=== PATIENT | male | born 1980 ===

== ENCOUNTER 2017-04-22 16:54 | Emergency (ER) | payer OTHER ==
--- NOTE | 2017-04-22 18:01 | ED PDOC ---
Upper Extremity Pain/Injury Time Seen by Provider: 04/22/17 17:08 Chief Complaint (Nursing): Upper Extremity Problem/Injury Chief Complaint (Provider): Right shoulder pain associated with chest pain History Per: Patient History/Exam Limitations: no limitations Onset/Duration Of Symptoms: Days (x4 days) Current Symptoms Are (Timing): Better Additional Complaint(s): 36 y/o male presents to the emergency department with a complaint of intermittent left shoulder pain associated with mild chest pain x4 days. Reports pain is a 2/10 in the ER. States pain does not worsen with deep breaths. Denies fall, shortness of breath or cough. No meds taken for pain relief since onset of symptoms a few days ago. Past Medical History Reviewed: Historical Data, Nursing Documentation, Vital Signs Vital Signs: Last Vital Signs Temp 98.6 F 04/22/17 17:01 Pulse 82 04/22/17 17:01 Resp 16 04/22/17 17:01 BP 143/85 04/22/17 17:01 Pulse Ox 98 04/22/17 17:01 - Medical History PMH: No Chronic Diseases - Surgical History Surgical History: No Surg Hx - Family History Family History: States: No Known Family Hx - Living Arrangements Living Arrangements: With Family - Social History Current smoker - smoking cessation education provided: Yes (Light smoker <10 Cigarettes Daily) Alcohol: Occasional Drugs: Denies - Home Medications Home Medications: Ambulatory Orders Medication Instructions Recorded Docusate [Colace] 100 mg PO DAILY #5 cap 04/11/16 - Allergies Allergies/Adverse Reactions: Allergies Allergy/AdvReac Type Severity Reaction Status Date / Time No Known Allergies Allergy Verified 04/22/17 17:01 Review of Systems ROS Statement: Except As Marked, All Systems Reviewed And Found Negative Cardiovascular: Positive for: Chest Pain (Mild) Respiratory: Negative for: Cough, Shortness of Breath Gastrointestinal: Negative for: Nausea, Vomiting Musculoskeletal: Positive for: Shoulder Pain (Left) Neurological: Negative for: Weakness, Numbness, Incoordination, Change in Speech , Confusion, Seizures, Altered Mental Status, Headache, Dizziness Physical Exam - Reviewed Nursing Documentation Reviewed: Yes Vital Signs Reviewed: Yes - Physical Exam Appears: Positive for: Well, Non-toxic, No Acute Distress Head Exam: Positive for: ATRAUMATIC, NORMAL INSPECTION, NORMOCEPHALIC Skin: Positive for: Normal Color. Negative for: Rash Eye Exam: Positive for: Normal appearance, EOMI, PERRL Neck: Positive for: Normal, Painless ROM. Negative for: Pain On Movement Of Neck Cardiovascular/Chest: Positive for: Regular Rate, Rhythm. Negative for: Chest Non Tender, Murmur Respiratory: Positive for: Normal Breath Sounds. Negative for: Accessory Muscle Use, Respiratory Distress Extremity: Positive for: Normal ROM (Full ROM of the left shoulder. ), Tenderness (Diffuse tenderness of the left shoulder region. ), Other (strong left hand international representative). Negative for: Deformity, Swelling Neurologic/Psych: Positive for: Alert, Oriented - Laboratory Results Result Diagrams: 04/22/17 18:03 04/22/17 18:03 - ECG Interpretation Of ECG: NSR 64 bpm with sinus arrhythmia, no acute finding, reviewed by PA and ED attending. O2 Sat by Pulse Oximetry: 98 (RA) Pulse Ox Interpretation: Normal - Other Rad L shoulder x-ray X-Ray: Interpreted by Me, Viewed By Me X-Ray Interpretation: no fx, no dis CXR X-Ray: Viewed By Me, Read By Radiologist X-Ray Interpretation: see below Medical Decision Making Medical Decision Making: Time: 17:08 Initial Impression: Left shoulder pain associated with chest pain Initial Plan: --Electrocardiogram STAT --COMP Metabolic Panel --Troponin I Stat --EKG-ED (EDNURTX) Stat --CBC w/ differential --Chest Two Views (RAD) --Shoulder Left (RAD) --Pain meds declined upon arrival --Reevaluation Time: 18:29 Chest x-ray: FINDINGS: LUNGS: Subtle opacity in the right upper lobe of unclear significance, possibly artifactual related to summation artifact. Nodule cannot be excluded.Please note that chest x-ray has limited sensitivity for the detection of pulmonary masses. PLEURA: No significant pleural effusion identified. No definite pneumothorax. CARDIOVASCULAR: The cardiomediastinal silhouette appears within normal limits of size. OSSEOUS STRUCTURES: No acute osseous abnormality identified. VISUALIZED UPPER ABDOMEN: Unremarkable. OTHER FINDINGS: None. IMPRESSION: Subtle opacity in the right upper lobe of unclear significance, possibly artifactual related to summation artifact. Nodule cannot be excluded. CT of the chest may be considered if indicated. 19:30: CT chest was ordered based on above chest x-ray report. Patient states chest and shoulder pain have resolved. Time: 20:19 CT Chest w/o contrast FINDINGS: Lungs: No acute pulmonary opacity. No suspicious lung nodule. There are few subpleural right upper lobe triangular pulmonary nodules measuring less than 4 mm compatible with normal pulmonary lymph nodes. Pleural space: No significant pleural effusion. No pneumothorax. Heart: No cardiomegaly or pericardial effusion. Bones/joints: No acute osseous abnormality. Soft tissues: No soft tissue swelling. Vasculature: Significantly limited assessment of the vasculature without contrast. No aortic aneurysm. Lymph nodes: No adenopathy. Upper abdomen: No acute findings in the upper abdomen. IMPRESSION: No acute pulmonary opacity or suspicious lung nodule. 20:30: Patient is aware of all diagnostic testing results, all questions answered. Upon reevaluation patient states the pain has resolved. Patient was instructed to take Tylenol for pain as needed and was referred to clinic for follow-up. Patient aware he can return to ED any time if acutely worse Scribe Attestation: Documented by Sunni Hernandez, acting as a scribe for Latosha Márquez PA-C. Provider Scribe Attestation: All medical record entries made by the Scribe were at my direction and personally dictated by me. I have reviewed the chart and agree that the record accurately reflects my personal performance of the history, physical exam, medical decision making, and the department course for this patient. I have also personally directed, reviewed, and agree with the discharge instructions and disposition. Disposition - Clinical Impression Clinical Impression: Shoulder pain, Chest pain - Patient ED Disposition Is Patient to be Admitted: No Counseled Patient/Family Regarding: Studies Performed, Diagnosis, Need For Followup - Disposition Referrals: [facility] [Outside] Disposition: Routine/Home Disposition Time: 21:11 Condition: STABLE Additional Instructions: Tylenol as needed for pain. Follow up with clinic in 2-3 days. Instructions: Chest Pain (ED), Shoulder Pain (ED) Print Language: HONDURAN Results - Lab Results Lab Results: 04/22/17 04/22/17 18:03 18:03 WBC 11.4 H RBC 4.83 Hgb 14.6 Hct 43.3 MCV 89.7 MCH 30.2 MCHC 33.6 RDW 13.9 Plt Count 272 MPV 8.8 Neut % (Auto) 71.4 Lymph % (Auto) 18.5 L Bollinger % (Auto) 7.4 Eos % (Auto) 1.6 Baso % (Auto) 1.1 Neut # 8.2 H Lymph # 2.1 Bollinger # 0.8 Eos # 0.2 Baso # 0.1 Sodium 141 Potassium 4.6 Chloride 102 Carbon Dioxide 29 Anion Gap 15 BUN 18 Creatinine 0.8 Est GFR ( Amer) > 60 Est GFR (Non-Af Amer) > 60 Random Glucose 106 Calcium 9.7 Total Bilirubin 0.3 AST 46 ALT 30 Alkaline Phosphatase 82 Troponin I < 0.0120 Total Protein 8.0 Albumin 4.8 Globulin 3.2 Albumin/Globulin Ratio 1.5
[2017-04-22 18:14] LABS: BASO # 0.1 K/uL (0.0-0.2); BASO % 1.1 % (0.0-2.0); EOS # 0.2 K/uL (0.0-0.7); EOS % 1.6 % (0.0-4.0); HEMATOCRIT 43.3 % (35.0-51.0); LYMPH # 2.1 K/uL (1.0-4.3); LYMPH % 18.5 % (20.0-40.0); MEAN CELL VOLUME 89.7 fl (80.0-94.0); MEAN CORPUSCULAR HEMOGLOBIN 30.2 pg (27.0-31.0); MEAN CORPUSCULAR HGB CONC 33.6 g/dL (33.0-37.0); MEAN PLATELET VOLUME 8.8 fl (7.2-11.7); MONO # 0.8 K/uL (0.0-0.8); MONO % 7.4 % (0.0-10.0); NEUT # 8.2 K/uL (1.8-7.0); NEUT % 71.4 % (50.0-75.0); RED CELL DISTRIBUTION WIDTH 13.9 % (11.5-14.5); WHITE BLOOD COUNT 11.4 K/uL (4.8-10.8)
--- NOTE | 2017-04-22 18:31 | RAD ---
HISTORY: chest pain COMPARISON: None available. TECHNIQUE: Chest PA and lateral FINDINGS: LUNGS: Subtle opacity in the right upper lobe of unclear significance, possibly artifactual related to summation artifact. Nodule cannot be excluded.Please note that chest x-ray has limited sensitivity for the detection of pulmonary masses. PLEURA: No significant pleural effusion identified. No definite pneumothorax . CARDIOVASCULAR: The cardiomediastinal silhouette appears within normal limits of size. OSSEOUS STRUCTURES: No acute osseous abnormality identified. VISUALIZED UPPER ABDOMEN: Unremarkable. OTHER FINDINGS: None. IMPRESSION: Subtle opacity in the right upper lobe of unclear significance, possibly artifactual related to summation artifact. Nodule cannot be excluded. CT of the chest may be considered if indicated.
--- NOTE | 2017-04-22 18:32 | RAD ---
PROCEDURE: Radiographs of the Left Shoulder HISTORY: trauma COMPARISON: None available. FINDINGS: BONES: No acute displaced fracture. The distal clavicle and underlying ribs appear intact. JOINTS: No acute dislocation. SOFT TISSUES: Soft tissues appear unremarkable. No evidence of radiopaque foreign body. IMPRESSION: No acute displaced fracture or dislocation evident. If symptoms persist or if there is continued clinical concern, x-ray follow-up in 7-10 days should be considered.
[2017-04-22 18:43] LABS: ALB/GLOB RATIO 1.5 (1.0-2.1); ALKALINE PHOSPHATASE 82 U/L (38-126); ALT/SGPT 30 U/L (21-72); AST/SGOT 46 U/L (17-59); BILIRUBIN,TOTAL 0.3 mg/dl (0.2-1.3); BLOOD UREA NITROGEN 18 mg/dl (9-20); CALCIUM 9.7 mg/dL (8.4-10.2); CARBON DIOXIDE 29 mmol/L (22-30); CHLORIDE 102 mmol/L (98-107); GFR AFRICAN-AMERICAN > 60; GLUCOSE,RANDOM 106 mg/dL (75-110); POTASSIUM 4.6 MMOL/L (3.6-5.0); SODIUM 141 mmol/l (132-148)
[2017-04-22 20:04] VITALS: BP 132/82; PULSE 78; RESP 14; TEMP 98
[2017-04-22 20:44] VITALS: O2SAT 98
--- NOTE | 2017-04-23 10:43 | CT ---
PROCEDURE: CT Chest without contrast HISTORY: possible nodule RUL, a per CXR report COMPARISON: Comparison made with chest radiograph obtained earlier same day. TECHNIQUE: Contiguous axial images were obtained through the chest without intravenous contrast enhancement. Sagittal and coronal reconstructions were performed. Radiation dose (DLP): 221.83 mGy-cm. This CT exam was performed using one or more of the following dose reduction techniques: Automated exposure control, adjustment of the mA and/or kV according to patient size, and/or use of iterative reconstruction technique. FINDINGS: LUNGS: No focal consolidation atelectasis or significant scarring. . No evidence of parenchymal masses. There are several tiny subpleural nodules measuring seen in the left and right lung apices and upper lung dave. On the right side 2 tiny subpleural nodules measuring approximately 3.4 and 2.3 mm (see axial image number 18 and 27 respectively). . . On the left side, minor left apical pleural thickening associated with a few sub pleural and parenchymal nodules measuring approximately 4.6 and 4.0 mm. Central airway is midline and patent. MEDIASTINUM: Heart size within range of normal. No significant pericardial effusion. Ascending thoracic aorta measures approximately 2.5 cm and descending thoracic aorta measures approximately 1.9 cm. Pulmonary trunk measures approximately 2.1 cm. . No vascular congestion. Few small nonspecific mediastinal lymph nodes are present. Evaluation for hilar adenopathy is limited due to the lack of circulating intravenous contrast material. . PLEURA: No pleural fluid. No pneumothorax. BONES: Multilevel chronic appearing fish-mouth endplate deformities of the thoracic spine are present. UPPER ABDOMEN: Visualized upper abdominal structures are grossly unremarkable. OTHER FINDINGS: None. IMPRESSION: No acute infiltrate effusion or pneumothorax. There are several subpleural nodules right and left upper lobes with some minor left apical pleural thickening. Repeat CT scan could be performed in 6 months to assess stability. Note this report was placed in PA review folder for followup. Multilevel fish-mouth endplate deformities of the thoracic spine
--- NOTE | 2017-04-23 13:22 | CARD ---
APPROVED REPORT EKG Measurement Heart [id number] <Conclusion> Normal sinus rhythm with sinus arrhythmia Normal ECG
== END 2017-04-22 21:19 | disposition home or self-care (01) ==
LOC: H.ER 16:54
DX: R07.89 Other chest pain (principal); M25.512 Pain in left shoulder